=== PATIENT | male | born 1995 | race African-American/Black ===

== ENCOUNTER 2017-02-04 00:24 | Emergency (ER) | payer OTHER ==
[~2017-02-04] VITALS: Ht 185.4 cm; Wt 68.0 kg
[2017-02-04] MEDS ORDERED: NOHOMEMEDICATIONS (00:31)
[2017-02-04 00:46] LABS: ABSOLUTE NEUTROPHILS 8.5 thou/uL (1.4-8.2); BASOPHILS 0.6 % (0.0-2.0); EOSINOPHILS 0.6 % (0.0-3.0); HEMATOCRIT 39.9 % (42.0-52.0); HEMOGLOBIN 13.2 gm/dL (14.0-18.0); LYMPHOCYTES 26.8 % (24.0-44.0); MCH 29.9 pg (26.0-34.0); MCHC 33.2 g/dL (28.0-37.0); MCV 90.2 fL (80.0-100.0); PLATELET COUNT 201 thou/uL (150-400); RBC 4.42 mil/uL (4.50-6.00); RDW 12.1 % (10.5-14.5)
[2017-02-04 00:47] LABS: MANUAL DIFF NO
[2017-02-04 00:52] LABS: CALCIUM 8.8 mg/dL (8.5-10.1); CREATININE 1.3 mg/dL (0.7-1.3); POTASSIUM 3.1 mmol/L (3.5-5.1)
[2017-02-04] MEDS ORDERED: AUGMENTIN 875-1 EACH PO (02:34)
[2017-02-04 03:21] VITALS: BP 118/72
== END 2017-02-04 03:22 | disposition home or self-care (01) ==
LOC: ER 00:24
PROVIDERS: Emergency Medicine
DX: S51.812A Laceration without foreign body of left forearm, initial encounter (principal); F12.10 Cannabis abuse, uncomplicated; X99.0XXA Assault by sharp glass, initial encounter; Y93.89 Activity, other specified; Y92.89 Other specified places as the place of occurrence of the external cause; Y99.8 Other external cause status

== ENCOUNTER 2019-08-01 10:23 | Emergency (ER) | payer OTHER ==
[~2019-08-01] VITALS: Ht 185.4 cm; Wt 68.0 kg
[~2019-08-01 10:23] MED LIST: AUGMENTIN 875-1 EACH PO; NOHOMEMEDICATIONS
[2019-08-01 11:11] LABS: HEMATOCRIT 38.6 % (42.0-52.0); HEMOGLOBIN 12.7 gm/dL (14.0-18.0); MCV 90.9 fL (80.0-100.0); PLATELET COUNT 138 thou/uL (150-400); RBC 4.25 mil/uL (4.50-6.00); RDW 11.5 % (10.5-14.5); WBC 7.9 thou/uL (4.0-11.0)
[2019-08-01 11:27] LABS: CREATININE 1.2 mg/dL (0.7-1.3); POTASSIUM 3.6 mmol/L (3.5-5.1)
[2019-08-01 11:32] LABS: TOTAL BILIRUBIN 0.7 mg/dL (<0.1-1.0); TOTAL PROTEIN 7.4 g/dL (6.4-8.2)
[2019-08-01 13:11] LABS: ANISOCYTOSIS SLIGHT
[2019-08-01 13:40] LABS: URINE BILIRUBIN NEGATIVE (Negative); URINE BLOOD TRACE (Negative); URINE CLARITY CLEAR; URINE COLOR YELLOW; URINE GLUCOSE-RANDOM* NEGATIVE (Negative); URINE KETONES NEGATIVE (Negative); URINE LEUKOCYTES-REFLEX NEGATIVE (Negative); URINE NITRITE-REFLEX NEGATIVE (Negative); URINE PROTEIN (DIPSTICK) NEGATIVE (Negative); URINE UROBILINOGEN >= 8.0 E.U./dl (0.2-1.0)
[2019-08-01 14:07] VITALS: BP 103/48
[2019-08-01] MEDS ORDERED: BUTALB-APAP-CA1 EACH PO (14:07)
== END 2019-08-01 14:07 | disposition home or self-care (01) ==
LOC: ER 10:23
PROVIDERS: Emergency Medicine
DX: R10.13 Epigastric pain (principal); R51 Headache; B34.9 Viral infection, unspecified

== ENCOUNTER 2020-06-25 15:26 | Emergency (ER) | payer OTHER ==
[~2020-06-25] VITALS: Ht 185.4 cm; Wt 68.0 kg
--- NOTE | ~2020-06-25 | EMS ---
[address] [address] EMS Patient Care Report Name: MILLER PLATT Room #: REG DELVIS Marvin#: [id number] Admission: 06/25/20 Attend Phys: Discharge: Date of : [birth year] Report #: [id number] THIS REPORT FOR: //name// Report Transmitted: 06/25/2020 16:31 EMS Care Summary [place], [place]/[facility] Incident [phone] @ 06/25/2020 14:53 Incident Location [facility] [address] [place] [address] Patient DEANDTE GIULIA Male, 25 Years 1995 Patient Address Patient History Substance Abuse, Patient Medications Unknown, Chief Complaint UNRESPONSIVE Disposition Transported [place] Dispatch Reason Overdose/Poisoning/Ingestion Transported To [facility] Narrative RESPONDED TO OVERDOSE A HOME. UPON ARRIVAL PT FOUND UNRESPONSIVE ON FLOOR. VITALS OBTAINED. PUPILS ARE PINPOINT SO NARCAN ADMINISTERED INTRANASALLY. OXYGEN VIA NRB AT 15 LPM BY FF DUE TO CYANOSIS AND POOR RESPIRATORY DRIVE. PT TEAM LIFTED TO COT. VITALS, 3 LEAD, IV AND MORE NARCAN ESTBALISHED. PT TRANSPORTED WITH NO CHANGE IN MENTAL STATUS BUT RESPIRATORY DRIVE IMPROVEMENT. PT TRANSPORTED EMERGENCY TO [facility] WITH [facility]. UPON ARRIVAL AT HOSPITAL PT WOKE UP CONFUSED AND GROGGY. PT SCOOTED TO BED AND HANDRAILS UP. REPORT GIVEN TO NURSE. PT ADMITS TO TAKING PERCOCET TODAY. [address] [place] [address] EMS Patient Care Report Name: MILLER PLATT Room #: REG Shavonne#: [id number] Admission: 06/25/20 Attend Phys: Discharge: Date of : [birth year] Report #: [id number] Initial Vitals @15:04P: 79,SpO2: 1, @15:05P: 94,SpO2: 26, @15:03P: 56,R: 10,BP: 125/58,GCS: 3,Glucose: 270,SpO2: 1,Revised Trauma: 8, @15:08P: 84,SpO2: 18, @15:15P: 104,CO: 4,SpO2: 100, @15:13P: 112,BP: 141/67,Pain: 0/10,CO: 2,SpO2: 99, Assessments @15:03MENTAL:Unresponsive,SKIN:Cyanotic,Pale,HEENT:Eyes: Left: Constricted,Eyes: Right: Constricted,Head/Face: No Abnormalities,LUNG SOUNDS:General: No Abnormalities,Left Upper: No Abnormalities,Right Upper: No Abnormalities,Left Lower: No Abnormalities,Right Lower: No Abnormalities,ABDOMEN:General: No Abnormalities,Left Upper: No Abnormalities,Right Upper: No Abnormalities,Left Lower: No Abnormalities,Right Lower: No Abnormalities,PELVIS//GI:No Abnormalities,EXTREMITIES:Left Arm: No Abnormalities,Right Arm: No Abnormalities,Left Leg: No Abnormalities,Right Leg: No Abnormalities,PULSE:NEURO:No Abnormalities,@15:12MENTAL:Unresponsive,SKIN:Diaphoresis,HEENT:Head/Face: No Abnormalities,Eyes: No Abnormalities,Neck/Airway: No Abnormalities,LUNG SOUNDS:General: No Abnormalities,Left Upper: No Abnormalities,Right Upper: No Abnormalities,Left Lower: No Abnormalities,Right Lower: No Abnormalities,ABDOMEN:General: No Abnormalities,Left Upper: No Abnormalities,Right Upper: No Abnormalities,Left Lower: No Abnormalities,Right Lower: No Abnormalities,PELVIS//GI:No Abnormalities,EXTREMITIES:Left Arm: No Abnormalities,Right Arm: No Abnormalities,Left Leg: No Abnormalities,Right Leg: No Abnormalities,PULSE:NEURO:Slurred Speech, Impression Overdose - Other opioids Procedures @15:03ALS AssessmentResponse: UnchangedSucceeded@15:10Saline Lock 0cc (18 ga) Site: Antecubital-LeftResponse: UnchangedFailed@15:11Saline Lock 3cc (20 ga) Site: Antecubital-RightResponse: UnchangedSucceeded@15:05Narcan - 1 Milligrams (mg) - IntranasalResponse: Improved@15:06Oxygen FlowRate: 15 Device: Non Re-breather Mask (NRB) Response: ImprovedSucceeded@15:113-Lead ECGResponse: UnchangedSucceeded@15:15Narcan - 1 Milligrams (mg) - Intravenous (IV)Response: Improved Timeline 14:52,Call Received 14:52,Dispatch Notified 14:53,Dispatched 14:54,En Route [address] [address] EMS Patient Care Report Name: MILLER PLATT Room #: KOURTNEY Marvin#: [id number] Admission: 06/25/20 Attend Phys: Discharge: Date of : [birth year] Report #: [id number] 15:01,On Scene 15:03,At Patient 15:03,BP: 125/58 M,PULSE: 56,RR: 10 R,SPO2: 1 Ox,ETCO2: ,B,PAIN: ,GCS: 3, 15:03,ALS Assessment,Response: UnchangedSucceeded, 15:04,BP: / M,PULSE: 79,RR: R,SPO2: 1 Ox,ETCO2: ,BG: ,PAIN: ,GCS: , 15:05,BP: / M,PULSE: 94,RR: R,SPO2: 26 Ox,ETCO2: ,BG: ,PAIN: ,GCS: , 15:05,Narcan - 1 Milligrams (mg) - Intranasal,Response: Improved 15:06,Oxygen FlowRate: 15 Device: Non Re-breather Mask (NRB) Response: ImprovedSucceeded, 15:08,BP: / M,PULSE: 84,RR: R,SPO2: 18 Ox,ETCO2: ,BG: ,PAIN: ,GCS: , 15:10,Saline Lock 0cc 18 ga Site: Antecubital-Left,Response: UnchangedFailed, 15:11,3-Lead ECG,Response: UnchangedSucceeded, 15:11,Saline Lock 3cc 20 ga Site: Antecubital-Right,Response: UnchangedSucceeded, 15:12,Depart Scene 15:13,BP: 141/67 M,PULSE: 112,RR: R,SPO2: 99 Ox,ETCO2: ,BG: ,PAIN: 0,GCS: , 15:15,BP: / M,PULSE: 104,RR: R,SPO2: 100 Ox,ETCO2: ,BG: ,PAIN: ,GCS: , 15:15,Narcan - 1 Milligrams (mg) - Intravenous (IV),Response: Improved 15:22,At Destination 15:37,Call Closed Disclaimer v1.1 Copyright 2020 [employer] This EMS Care Summary contains data elements from the applicable legal record (which may be displayed differently). It is designed to provide pertinent information for the following purposes: continuity of care, clinical quality, and state data reporting. The complete legal record is available to ED staff and administrators of the receiving hospital in [facility]'s Patient Tracker. All data is provided "as is."
[~2020-06-25 15:26] MED LIST changes: +BUTALB-APAP-CA1 EACH PO
[2020-06-25 15:45] LABS: ABSOLUTE NEUTROPHILS 7.4 thou/uL (1.4-8.2); BASOPHILS 0.5 % (0.0-2.0); EOSINOPHILS 1.5 % (0.0-3.0); HEMATOCRIT 41.6 % (42.0-52.0); HEMOGLOBIN 13.3 gm/dL (14.0-18.0); LYMPHOCYTES 30.1 % (24.0-44.0); MCH 30.1 pg (26.0-34.0); MCHC 32.1 g/dL (28.0-37.0); MCV 93.7 fL (80.0-100.0); MONOCYTES 7.4 % (1.0-8.0); PLATELET COUNT 231 thou/uL (150-400); POLYS 60.5 % (36.0-66.0); RBC 4.44 mil/uL (4.50-6.00); WBC 12.2 thou/uL (4.0-11.0)
[2020-06-25 16:20] LABS: CALCIUM 8.6 mg/dL (8.5-10.1); CREATININE 1.6 mg/dL (0.7-1.3); POTASSIUM 3.5 mmol/L (3.5-5.1)
[2020-06-25 17:55] LABS: URINE BILIRUBIN NEGATIVE (Negative); URINE BLOOD NEGATIVE (Negative); URINE CLARITY CLEAR; URINE COLOR YELLOW; URINE GLUCOSE-RANDOM* 1+ (Negative); URINE KETONES NEGATIVE (Negative); URINE LEUKOCYTES-REFLEX NEGATIVE (Negative); URINE NITRITE-REFLEX NEGATIVE (Negative); URINE PROTEIN (DIPSTICK) 1+ (Negative); URINE SPECIFIC GRAVITY >= 1.030 (1.005-1.035); URINE UROBILINOGEN 0.2 E.U./dl (0.2-1.0)
[2020-06-25 18:02] LABS: AMP/METHAMP Negative (Negative); BARBITURATES Negative (Negative); BENZODIAZEPINES POSITIVE (Negative); COCAINE Negative (Negative); METHADONE Negative (Negative); OPIATES Negative (Negative); PCP Negative (Negative)
[2020-06-25 18:06] LABS: BACTERIA-REFLEX 1-9 Few /HPF (None Seen); CASTS None Seen /LPF (None Seen); CRYSTALS None Seen /LPF (None Seen); SQUAMOUS None Seen /LPF (0-3); URINE RBC None Seen /HPF (0-2); URINE WBC-REFLEX 0-5 Rare /HPF (0-5)
[2020-06-25 20:11] VITALS: BP 100/72
--- NOTE | 2020-06-26 07:18 | EKG ---
[facility] [place] [address] ELECTROCARDIOGRAM REPORT Name: MILLER PLATT Room #: [facility]USFelicianoFeliciano#: [id number] Admission: 06/25/20 Attend Phys: Discharge: 06/25/20 Date of : [birth year] Report #: [id number] THIS REPORT FOR: cc: CAROLANN Wellington family physician/PCP CAROLANN Wellington family physician/PCP Carroll De La Fuente MD [facility] ~ THIS REPORT FOR: //name// [facility] ED Test Date: 2020-06-25 Test Time: 15:28:33 Pat Name: MILLER PLATT Department: Room: Gender: Sound Printer: [facility] [place] : 1995 Requested By: Мария Harrington Order Number: [id number] MD: Carroll De La Fuente Measurements Intervals Edgard Rate: 93 P: 78 ME: 176 QRS: 91 QRSD: 106 T: 40 QT: 392 QTc: 488 Interpretive Statements Sinus rhythm Probable left atrial enlargement Borderline right axis deviation Borderline prolonged QT interval No previous ECG available for comparison Electronically Signed On 06-26-2020 7:18:47 [employer] by Carroll De La Fuente [email or web address] <ELECTRONICALLY SIGNED> By: Carroll De La Fuente MD, FACC 06/26/20 0718 1528 1528 Carroll De La Fuente MD, [facility] /EPI
== END 2020-06-25 20:13 | disposition home or self-care (01) ==
LOC: ER 15:26
PROVIDERS: Emergency Medicine
DX: T40.2X1A Poisoning by other opioids, accidental (unintentional), initial encounter (principal); R41.82 Altered mental status, unspecified; R09.02 Hypoxemia; Y92.89 Other specified places as the place of occurrence of the external cause